=== PATIENT | female | born 1945 ===

== ENCOUNTER 2020-05-10 17:21 | Emergency (ER) | payer OTHER, SELFPAY ==
[2020-05-10 17:34] VITALS: BP 165/82; PULSE 85; RESP 16; TEMP 36.7; O2SAT 97; BMI 25.9
[2020-05-10 17:46] VITALS: RESP 18
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
[2020-05-10 19:00] LABS: Urine Appearance SL Hazy (CLEAR); Urine Color Yellow (Yellow); pH Urine 6 (5-7)
[2020-05-10 19:01] LABS: Add Urine Microscopic? YES; Bilirubin Urine Neg (NEGATIVE); Blood Urine Neg (Negative); Glucose Urine UA Norm (Normal); Ketones Urine Negative (Negative); Leukocyte Esterase Urine 2+ (Negative); Nitrate Urine Negative (Negative); Protein Urine Neg (Negative); Specific Gravity, Urine 1.005 (1.005-1.030); Urobilinogen Urine Norm (Negative)
[2020-05-10 19:05] LABS: WBC Urine 15-25 /hpf (0-5)
[2020-05-10 19:07] LABS: Bacteria Urine 1+; Mucus Urine TRACE
[2020-05-10 19:08] LABS: Add Urine Culture? No
[2020-05-10] MEDS: HYDROcodone-acetaminophen 5-325 mg Tablet 1 TAB PO (20:15)
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
[2020-05-10 20:35] VITALS: BP 196/101; PULSE 78; RESP 18; O2SAT 96
== END 2020-05-10 20:37 | disposition home or self-care (01) ==
PROVIDERS: Emergency Provider Family Medicine
DX: Z04.1 Encounter for examination and observation following transport accident (principal); V53.6XXA Passenger in pick-up truck or van injured in collision with car, pick-up truck or van in traffic accident, initial encounter
CPT/HCPCS: 12345; 72125; 73502; 81001; 99282; 99283